=== PATIENT | female | born 1990 | race Caucasian/White ===

== ENCOUNTER 2018-01-11 12:25 | Emergency (ER) | payer MEDICAID | END 2018-01-11 13:35 | disposition home or self-care (01) | LOC: MADERS 12:25 | DX: G57.92 Unspecified mononeuropathy of left lower limb (principal); I10 Essential (primary) hypertension; Z79.899 Other long term (current) drug therapy | CPT/HCPCS: 99283 ==

== ENCOUNTER 2019-03-01 15:31 | Emergency (ER) | payer OTHER | END 2019-03-01 16:30 | disposition home or self-care (01) | LOC: MADERS 15:31 | DX: L03.113 Cellulitis of right upper limb (principal); G62.89 Other specified polyneuropathies; I10 Essential (primary) hypertension; Z79.899 Other long term (current) drug therapy ==